=== PATIENT | female | born 1950 | race Hispanic/Latino ===

== ENCOUNTER 2017-06-26 10:05 | Outpatient (CLI) | payer OTHER ==
--- NOTE | 2017-06-26 15:41 | Mammography Report ---
BILATERAL DIGITAL SCREENING MAMMOGRAM with CAD: 06/26/17 10:05:00 CLINICAL: Routine screening. COMPARISON:06/10/16 FINDINGS: The breasts are almost entirely fatty. No mass, architectural distortion or suspicious calcifications. IMPRESSION: No mammographic evidence of malignancy. BI-RADS CATEGORY: 2 -- Benign RECOMMENDATION: Routine mammographic screening in one year. COMMENT: Patient follow-up letters are generated by our [employer] application.
== END 2017-06-26 10:06 | disposition home or self-care (01) ==
LOC: SPVWC 10:05
PROVIDERS: ATTEND Family Medicine
DX: Z12.31 Encounter for screening mammogram for malignant neoplasm of breast (principal)
CPT/HCPCS: 77067; G0202